=== PATIENT | male | born 1940 | race Caucasian/White ===

== ENCOUNTER 2017-06-14 13:03 | Outpatient (CLI) | payer OTHER ==
[~2017-06-14 13:03] MED LIST: AMIO200T57 PO; APIX5TAB3 PO; CHLO118M PO; DILT30TA34 PO; DOCU-148 PO; HYDR-3968 PO; METO-467 PO; PANT20TA3 IV
== END 2017-06-14 23:59 | disposition home or self-care (01) ==
LOC: 64 CT 13:03
PROVIDERS: ATTEND Internal Medicine Critical Care Medicine
DX: J96.01 Acute respiratory failure with hypoxia (principal); J93.9 Pneumothorax, unspecified; J90 Pleural effusion, not elsewhere classified; T79.7XXA Traumatic subcutaneous emphysema, initial encounter; K82.8 Other specified diseases of gallbladder
CPT/HCPCS: 71250

== ENCOUNTER 2017-06-14 23:55 | Inpatient (IN) | payer MEDICARE, OTHER ==
[~2017-06-14] VITALS: Ht 182.9 cm; Wt 90.0 kg
[2017-06-15] VITALS (7 sets, daily range): BP systolic 76–163; BP diastolic 28–95
[2017-06-15 00:15] LABS: BASOPHILS % (AUTO) 0.3 % (0-1); EOSINOPHILS # (AUTO) 0.6 X10'3 (0-0.9); HEMATOCRIT 23.6 % (42.0-52.0); LYMPHOCYTES # (AUTO) 2.3 X10'3 (1.1-4.8); LYMPHOCYTES % (AUTO) 15.4 % (21-51); MEAN CORPUSCULAR HEMOGLOBIN 29.8 PG (27.0-31.0); MEAN CORPUSCULAR HGB CONC 33.8 % (33.0-36.5); MEAN CORPUSCULAR VOLUME 88.1 FL (78-98); MEAN PLATELET VOLUME 6.7 FL (7.4-10.4); MONOCYTES # (AUTO) 1.3 X10'3 (0-0.9); MONOCYTES % (AUTO) 8.4 % (2-12); NEUTROPHILS # (AUTO) 10.7 X10'3 (1.8-7.7); NEUTROPHILS % (AUTO) 71.9 % (42-75); PLATELET COUNT 442 X10'3 (140-440); RED BLOOD COUNT 2.68 X10'6 (4.70-6.10); RED CELL DISTRIBUTION WIDTH 16.8 % (11.5-14.5); WHITE BLOOD COUNT 14.9 X10'3 (4.5-11.0)
[2017-06-15 00:36] LABS: ALANINE AMINOTRANSFERASE 75 U/L (12-78); ALBUMIN 1.6 G/DL (3.4-5.0); ALBUMIN/GLOBULIN RATIO 0.3 (1.1-1.5); ALKALINE PHOSPHATASE 307 IU/L (46-116); ANION GAP 5 (8-16); ASPARTATE AMINO TRANSFERASE 50 U/L (10-37); BILIRUBIN,TOTAL 0.3 MG/DL (0.1-1.0); CALCIUM 7.9 MG/DL (8.5-10.1); CHLORIDE 101 MMOL/L (99-107); CREATININE 1.46 MG/DL (0.60-1.10); GLUCOSE 347 MG/DL (70-104); MAGNESIUM 1.9 MG/DL (1.5-2.4); POTASSIUM 4.1 MMOL/L (3.5-5.1); SODIUM 136 MMOL/L (135-145); TOTAL PROTEIN 6.4 G/DL (6.4-8.2); eGFR 47 ML/MIN
[2017-06-15 00:37] LABS: INR 1.1 INR; PARTIAL THROMBOPLASTIN TIME 34 SECONDS (22-32); PROTHROMBIN TIME 11.2 SECONDS (9.0-12.0)
[2017-06-15 00:42] LABS: BLOOD UREA NITROGEN 41 MG/DL (7-18); BUN/CREATININE RATIO 28.1 (5.4-32.0)
[2017-06-15 00:51] LABS: ABG BASE EXCESS 0.9 mmol/L (-2.0-3.0); ABG HCO3 28.6 mmol/L (22.0-26.0); ABG OXYGEN SATURATION 90.9 % (95-98); ABG PCO2 (T) 61.9 mmHg (35.0-48.0); ABG PH (T) 7.277 (7.350-7.450); ABG PO2 (T) 64.7 mmHg (83-108); FCOHb 0.3 % (0.5-1.5); FLOW 45 L/min; FMetHb 0.2 % (0.3-1.12); FO2Hb 90.4 % (94-100); MINUTE VOLUME 6 L/min; PATIENT TEMPERATURE 35.9; PEEP 5 cm H2O; RESPIRATORY RATE 12 b/min; RESPIRATORY RATE (OBSERVED) 17 b/min; TIDAL VOLUME 400 mL; TOTAL HEMOGLOBIN 8.7 G/dl (14.0-18.0)
[2017-06-15] MEDS ORDERED: iohexol 350MG/ML 100ml bottle IV ONE (01:10)
[2017-06-15] MEDS ORDERED: fentaNYL/PF 50MCG/1 ML 2ML syringe IV ONE ×3 (03:25→06:35)
[2017-06-15 04:35] LABS: ABG BASE EXCESS -4.1 mmol/L (-2.0-3.0); ABG HCO3 20.5 mmol/L (22.0-26.0); ABG OXYGEN SATURATION 85.7 % (95-98); ABG PCO2 (T) 34.9 mmHg (35.0-48.0); ABG PH (T) 7.384 (7.350-7.450); ABG PO2 (T) 45.7 mmHg (83-108); FCOHb 0.2 % (0.5-1.5); FMetHb 0.3 % (0.3-1.12); FO2Hb 85.3 % (94-100); MINUTE VOLUME 9 L/min; PATIENT TEMPERATURE 36.5; PEEP 10 cm H2O; RESPIRATORY RATE 14 b/min; RESPIRATORY RATE (OBSERVED) 23 b/min; TIDAL VOLUME 400 mL; TOTAL HEMOGLOBIN 11.6 G/dl (14.0-18.0)
[2017-06-15] MEDS ORDERED: ondansetron/PF 4mg/2ml inj IV PRN (05:45)
[2017-06-15] MEDS ORDERED: midazolam 100mg in NS 100ml 100 ML IV PRN (06:02)
[2017-06-15] MEDS ORDERED: FENTANYL-0.9 % NACL/PF 100 ML IV PRN (06:02)
[2017-06-16] MEDS ORDERED: mineral oil/petrolatum ophthal oint EACHEYE SCH (08:00)
== END 2017-06-15 07:44 | disposition expired | DRG 208 ==
LOC: ER 23:56 → ED HOLD 06-15 05:43
PROVIDERS: ADMIT Internal Medicine Critical Care Medicine; ATTEND Emergency Medicine
PROC: 30233N1 Transfusion of Nonautologous Red Blood Cells into Peripheral Vein, Percutaneous Approach (ICD-10-PCS; principal; 2017-06-15)
PROC: 5A1935Z Respiratory Ventilation, Less than 24 Consecutive Hours (ICD-10-PCS; 2017-06-15)
PROC: B32T1ZZ Computerized Tomography (CT Scan) of Left Pulmonary Artery using Low Osmolar Contrast (ICD-10-PCS; 2017-06-15)
PROC: B3201ZZ Computerized Tomography (CT Scan) of Thoracic Aorta using Low Osmolar Contrast (ICD-10-PCS; 2017-06-15)
PROC: B32S1ZZ Computerized Tomography (CT Scan) of Right Pulmonary Artery using Low Osmolar Contrast (ICD-10-PCS; 2017-06-15)
DX: J95.01 Hemorrhage from tracheostomy stoma (principal); I46.9 Cardiac arrest, cause unspecified; I26.99 Other pulmonary embolism without acute cor pulmonale; J86.9 Pyothorax without fistula; A41.9 Sepsis, unspecified organism; J90 Pleural effusion, not elsewhere classified; N19 Unspecified kidney failure; I82.210 Acute embolism and thrombosis of superior vena cava; J96.11 Chronic respiratory failure with hypoxia; J96.12 Chronic respiratory failure with hypercapnia; I72.8 Aneurysm of other specified arteries; E11.9 Type 2 diabetes mellitus without complications; E78.00 Pure hypercholesterolemia, unspecified; E78.5 Hyperlipidemia, unspecified; I10 Essential (primary) hypertension; J45.909 Unspecified asthma, uncomplicated; K21.9 Gastro-esophageal reflux disease without esophagitis; M10.9 Gout, unspecified; Z51.5 Encounter for palliative care; Z93.1 Gastrostomy status; Z99.2 Dependence on renal dialysis; Z79.899 Other long term (current) drug therapy; Z79.01 Long term (current) use of anticoagulants
CPT/HCPCS: 36415; 36600; 51702; 71045; 71250; 71275; 80053; 82803; 83735; 83880; 84484; 85018; 85025; 85610; 85730; 86885; 86900; 86901; 86920; 93005; 94002; 94760; 99291; 99292; A6224; A6446; A6449; J2250; J3010; J7030; P9016; Q9967